=== PATIENT | female | born 1970 | race Caucasian/White ===

== ENCOUNTER → 2023-12-29 | Outpatient (REF) | payer OTHER, SELFPAY | LOC: DHSLP | PROVIDERS: ATTENDING PHYSICIAN Physician Assistant Medical | DX: G47.33 Obstructive sleep apnea (adult) (pediatric) (principal) | CPT/HCPCS: 95806 ==

== ENCOUNTER → 2024-01-27 06:19 | Day surgery (SDC) | payer OTHER, SELFPAY | LOC: GI 06:19 | PROVIDERS: ATTENDING PHYSICIAN Internal Medicine | DX: Z12.11 Encounter for screening for malignant neoplasm of colon (principal); K63.5 Polyp of colon; K64.9 Unspecified hemorrhoids; Z86.010 Personal history of colon polyps | CPT/HCPCS: 45380; 88305 ==

== ENCOUNTER → 2024-08-23 11:50 | Outpatient (REF) | payer OTHER, SELFPAY | LOC: WDC 11:50 | PROVIDERS: ATTENDING PHYSICIAN Physician Assistant Medical | DX: Z12.31 Encounter for screening mammogram for malignant neoplasm of breast (principal) | CPT/HCPCS: 77063; 77067 ==

== ENCOUNTER → 2025-03-05 09:23 | Outpatient (REF) | payer OTHER, SELFPAY | LOC: HWRAD 09:23 | PROVIDERS: ATTENDING PHYSICIAN Physician Assistant; FAMILY PHYSICIAN Physician Assistant Medical | DX: M81.0 Age-related osteoporosis without current pathological fracture (principal) | CPT/HCPCS: 77080 ==

== ENCOUNTER → 2025-08-06 07:56 | Outpatient (REF) | payer OTHER, SELFPAY | LOC: WDC 07:56 | PROVIDERS: ATTENDING PHYSICIAN Physician Assistant Medical | DX: Z12.31 Encounter for screening mammogram for malignant neoplasm of breast (principal) | CPT/HCPCS: 77063; 77067 ==

== ENCOUNTER 2025-08-18 15:08 | Emergency (ER) | payer OTHER, SELFPAY ==
[2025-08-18 15:10] VITALS: BP 135/69
--- NOTE | 2025-08-18 17:23 | ED.GENMED ---
History of Present Illness
General
Chief Complaint: Musculo-Skeletal Complaint
Source: patient
Exam Limitations: none
Time Seen by Provider: 08/18/25 17:17
Nursing documentation reviewed up to this point in time: agreed with
History of Present Illness
History of Present Illness:
55-year-old female with no significant chronic issues presents to the ER for evaluation of right ankle injury. Patient says she was walking on gravel prior to arrival and inverted right ankle and has pain on the lateral aspect since. She was able
to weight-bear but has pain with weightbearing. She denies any other injuries or complaints include specifically denying any knee pain.
Past History
Past History
ED Past Medical History: None
ED Past Surgical History: None
Social History
Tobacco: Non-smoker
Alcohol: None
Drug: None
Personal:
Living: with family
Review of Systems
Review of Systems
All Other Systems: ROS reviewed and negative except as documented in HPI and ROS
Musculoskeletal: Reports joint pain and joint swelling
Phy Exam
Physical Exam
Physical Exam:
General: Well appearing and non-toxic
HEENT: protecting airway
Neck: appears supple
CV: No evidence of cyanosis
Resp: No accessory muscle use
Abd: Non-distended
Extremities: Patient has bruising and swelling over the lateral malleolus on the right ankle with tenderness on the posterior aspect of the lateral malleolus; no tenderness of the medial malleolus, midfoot or along the fifth metatarsal; she does
have a strong dorsalis pedis pulse
Neuro: Alert
Psych: Normal affect
Skin: Intact
Scores
Heart Failure Risk
Heart Failure Risk Score: Not Applicable
Heart Score for Chest Pain Patients
STEMI patient?: Not applicable
Withdrawal Assessment of Alcohol
Withdrawal Assessment Completed?: Not applicable
Course
Orders/Labs/Results
Orders:
Orders
08/18/25 15:09
Ankle, Right 3 view CR [CR Ankle - Right Min 3 Views *] Urgent
Comment:
Reason For Exam: rolled her ankle
08/18/25 17:22
Ortho Boot Right- Treatment ONCE
Short or tall?: Short
Vital Signs
Initial and Last Documented VS:
Initial Vital Signs
Temp Pulse Resp BP Pulse Ox
36.5 C 93 16 135/69 98
08/18/25 15:10 08/18/25 15:10 08/18/25 15:10 08/18/25 15:10 08/18/25 15:10
Last Documented Vital Signs
Temp Pulse Resp BP Pulse Ox
36.5 C 93 16 135/69 98
08/18/25 15:10 08/18/25 15:10 08/18/25 15:10 08/18/25 15:10 08/18/25 17:27
MDM/Problems Addressed
Differential Diagnosis Includes:
Ankle sprain, ankle fracture
MDM/Problems Addressed:
55-year-old female presents after an inversion injury of the right ankle. She is able to weight-bear but with pain. Has swelling and tenderness of the lateral malleolus. X-ray shows tiny nondisplaced fracture of the distal right fibula. Will
place an Ortho boot, weight-bear as tolerated, follow-up with orthopedist as an outpatient. Advised patient regarding RICE. All questions answered.
*Radiology
Radiology exam reviewed: radiology read reviewed
*Pulse Oximetry
SaO2: 98
Oxygen Mode of Delivery: Room air
Patient hypoxic: no (98%)
*Critical Care Note
Total Time (30-74mins, 75-104mins- exclusive of procedures): Not Applicable
ED Attending Note
-
Portions of this chart may have been created with voice recognition software.� Occasional wrong word or��sound alike� substitutions may have occurred due to the inherent limitations of voice recognition software.
Discharge Plan
Departure
Patient Disposition: Home (Routine Discharge)
Date of Disposition: 08/18/25
Time of Disposition: 17:26
Patient with high blood pressure during this ER visit?: No
Discharge Problem:
Closed fibular fracture
Instructions: Lower leg fracture
Prescriptions:
No Action
meloxicam [Mobic] 15 MG tablet
15 mg PO PRN (Reason: tendonitis in feet)
pseudoephedrine-ibuprofen 1 TAB tablet
1 udtab PO PRN (Reason: sinus headache/pressure)
ondansetron 4 mg tablet,disintegrating
4 mg PO Q8H PRN (Reason: nausea and vomiting) Qty: 7 0RF
Referrals:
Remy Blackmon DPM [Active, Podiatry] - Call in 1-3 days for appt
Activity Restrictions/Additional Instructions:
Thank you for visiting the Emergency Department at [facility].
1. Please schedule a follow up appointment as directed. Call first thing tomorrow morning to make an appointment.
2. If indicated, please take your medications as instructed and indicated on discharge paperwork.
3. If any of your symptoms do not improve, or persist, or become more severe within 6-12 hours, please return to the emergency department for further care.
4. Please return to the emergency department if you develop a headache, neck pain/stiffness, fever greater than 100.4F, chest pain, shortness of breath, persistent nausea, vomiting, slurred speech, difficulty walking, numbness/tingling, weakness,
signs of infection or any other symptoms that are worrisome to you.
Please call [phone] if you have any questions.
Interventions
Interventions:
*Risk Screen - Suicide Last Done: 08/18/25 15:10
*General Assessment Last Done: 08/18/25 15:10
Discharge Date and Time
Print Language: CAMBODIAN
--- NOTE | 2025-08-18 17:50 | EDRN ---
Dr. William evaluated and discharged this patient. This RN did not interact with this patient during this visit.
== END 2025-08-18 17:30 | disposition home or self-care (01) ==
LOC: EMR 15:08
PROVIDERS: EMERGENCY PHYSICIAN Emergency Medicine; FAMILY PHYSICIAN Physician Assistant Medical
DX: S82.831A Other fracture of upper and lower end of right fibula, initial encounter for closed fracture (principal); X50.1XXA Overexertion from prolonged static or awkward postures, initial encounter; Y93.01 Activity, walking, marching and hiking
CPT/HCPCS: 99283; 73610